=== PATIENT | male | born 1945 | race African-American/Black ===

== ENCOUNTER 2019-12-22 13:42 | Outpatient (CLI) | payer MEDICARE, BC ==
[~2019-12-22 13:42] MED LIST: AMLODIPINE BESYL5 MG ORAL; COZAAR25 MG ORAL; GLUCOPHAGE850 MG ORAL; LANTUS5 UNITS SUBQ; NOVOLOG100 UNIT/3 SUBQ; SIMVASTATIN40 MG ORAL; THIAMINE HCL100 MG ORAL
[2019-12-22 15:11] VITALS: BP 116/59
--- NOTE | 2019-12-22 15:13 | General Progress Note ---
Assessment/Plan Assessment/Plan: SUMMARY OF FINDINGS: 1. Gastritis, status post biopsy. 2. A 5 cm hiatal hernia. 3. Gastric nodule, status post biopsy. 4. Diverticulosis. 5. Internal hemorrhoids. 6. Two colonic polyps removed, see above for details. CT reviewed added marinol 2.5 BID RTC one month Subjective ROS Limited/Unobtainable: Yes Allergies: Coded Allergies: PENICILLINS (Unverified Allergy, Severe, rash , 11/22/19) Objective General Appearance: alert EENT: normal ENT inspection Neck: supple Cardiovascular: normal rate Respiratory/Chest: decreased breath sounds Abdomen: normal bowel sounds, non tender, soft Extremities: non-tender Wagner Velasquez MD Dec 22, 2019 15:13
== END 2019-12-22 15:42 | disposition home or self-care (01) ==
LOC: PAN 13:42
DX: K29.70 Gastritis, unspecified, without bleeding (principal); K44.9 Diaphragmatic hernia without obstruction or gangrene; K57.90 Diverticulosis of intestine, part unspecified, without perforation or abscess without bleeding; K64.8 Other hemorrhoids; K63.5 Polyp of colon; Z88.0 Allergy status to penicillin
CPT/HCPCS: 99212

== ENCOUNTER 2020-01-26 13:35 | Outpatient (CLI) | payer MEDICARE, BC ==
--- NOTE | 2020-01-26 14:36 | General Progress Note ---
Assessment/Plan Assessment/Plan: Assessment/Plan Assessment/Plan: SUMMARY OF FINDINGS: 1. Gastritis, status post biopsy. 2. A 5 cm hiatal hernia. 3. Gastric nodule, status post biopsy. 4. Diverticulosis. 5. Internal hemorrhoids. 6. Two colonic polyps removed, see above for details. CT reviewed added marinol 2.5 BID>>>> too expensive RTC one month Subjective ROS Limited/Unobtainable: Yes Allergies: Coded Allergies: PENICILLINS (Unverified Allergy, Severe, rash , 11/22/19) Objective General Appearance: alert EENT: normal ENT inspection Neck: supple Cardiovascular: normal rate Respiratory/Chest: decreased breath sounds Abdomen: normal bowel sounds, non tender, soft Extremities: non-tender Wagner Velasquez MD Jan 26, 2020 14:36
== END 2020-01-26 16:29 | disposition home or self-care (01) ==
LOC: PAN 13:35
DX: K29.70 Gastritis, unspecified, without bleeding (principal); K44.9 Diaphragmatic hernia without obstruction or gangrene; K57.90 Diverticulosis of intestine, part unspecified, without perforation or abscess without bleeding; K64.8 Other hemorrhoids; K63.5 Polyp of colon; Z88.0 Allergy status to penicillin
CPT/HCPCS: 99212